=== PATIENT | female | born 1970 | race Caucasian/White ===

== ENCOUNTER 2016-09-02 09:11 | Emergency (ER) | payer OTHER ==
[~2016-09-02 09:11] MED LIST: AUGMENTIN875 MG PO; B-12250 MCG PO; COCONUT OIL1000 MG PO; FLAGYL250 M1 PO; MULTI VITAMIN1 EACH PO; PROTONIX PO; VITAMIN C100 MG PO
== END 2016-09-02 09:30 | disposition home or self-care (01) ==
LOC: CED 09:11
DX: R41.82 Altered mental status, unspecified (principal); Z98.890 Other specified postprocedural states
CPT/HCPCS: 99282